=== PATIENT | female | born 1995 | race Caucasian/White ===

== ENCOUNTER 2017-08-22 14:29 | Emergency (ER) | payer OTHER ==
[2017-08-22 15:54] LABS: BASO # 0.1 10^3/uL (0.0-0.2); BASO % 0.5 % (0.0-1.0); EOS # 0.2 10^3/uL (0.0-0.50); EOS % 1.8 % (0.0-3.0); HEMATOCRIT 44.5 % (36.0-47.0); HEMOGLOBIN 15.2 g/dl (12.0-16.0); IMMATURE GRANULOCYTE % 0.3 % (0-3.0); LYMPH # 1.6 10^3/uL (1.5-6.5); LYMPH % 14.3 % (24.0-44.0); MEAN CORPUSCULAR HEMOGLOBIN 30.1 pg (27.0-33.0); MEAN CORPUSCULAR HGB CONC 34.2 g/dl (32.0-36.5); MEAN CORPUSCULAR VOLUME 88.1 fl (80.0-96.0); MONO # 0.7 10^3/uL (0.0-0.8); MONO % 6.4 % (0.0-5.0); NEUTROPHILS # 8.4 10^3/uL (1.8-7.7); NEUTROPHILS % 76.7 % (36.0-66.0); PLATELET COUNT, AUTOMATED 310 10^3/uL (150-450); RED BLOOD COUNT 5.05 10^6/uL (4.00-5.40); RED CELL DISTRIBUTION WIDTH 13.1 % (11.5-14.5)
[2017-08-22] MEDS: ONDANSETRON 4MG/2ML VIAL (J2405) IV (16:05)
[2017-08-22] MEDS: NS 500 ML IV (16:05)
[2017-08-22 16:16] LABS: CONTROL LINE HCG INT CTR LINE PRESENT; HCG, SERUM QUALITATIVE NEGATIVE (NEGATIVE)
[2017-08-22 16:26] LABS: ALBUMIN 4.2 GM/DL (3.2-5.2); ALBUMIN/GLOBULIN RATIO 1.11 (1.00-1.93); ALKALINE PHOSPHATASE 67 U/L (45-117); ALT/SGPT 14 U/L (12-78); ANION GAP 8 MEQ/L (8-16); AST/SGOT 18 U/L (7-37); BILIRUBIN,DIRECT 0.1 MG/DL (0.0-0.2); BILIRUBIN,TOTAL 0.5 MG/DL (0.2-1.0); BLOOD UREA NITROGEN 9 MG/DL (7-18); CALCIUM LEVEL 8.9 MG/DL (8.5-10.1); CARBON DIOXIDE LEVEL 26 MEQ/L (21-32); CHLORIDE LEVEL 106 MEQ/L (98-107); CREATININE FOR GFR 0.65 MG/DL (0.55-1.30); GLOMERULAR FILTRATION RATE > 60.0 (>60); GLUCOSE, FASTING 87 MG/DL (70-100); SODIUM LEVEL 140 MEQ/L (136-145)
[2017-08-22] MEDS ORDERED: ISOVUE-370 76% 100ML VIAL (Q9967) As Ordered (16:27)
== END 2017-08-22 17:13 | disposition home or self-care (01) ==
LOC: M ED 14:29
DX: M54.9 Dorsalgia, unspecified (principal); V43.62XA Car passenger injured in collision with other type car in traffic accident, initial encounter; Y92.410 Unspecified street and highway as the place of occurrence of the external cause; Y93.9 Activity, unspecified; Z04.3 Encounter for examination and observation following other accident; Z91.018 Allergy to other foods
CPT/HCPCS: J2405

== ENCOUNTER → 2018-10-15 | Outpatient (REF) | payer OTHER ==
[~2018-10-15] MED LIST: CYCL5TAB PO; IBUP-1022 PO
== END ==
LOC: M LAB REF 18:01
PROVIDERS: ATTEND Physician Assistant
DX: J02.9 Acute pharyngitis, unspecified (principal)

== ENCOUNTER → 2019-12-30 | Outpatient (CLI) | payer BC, OTHER ==
--- NOTE | 2019-12-31 03:24 | REPPI ---
REASON FOR EXAM: Groin pain. AP pelvis and bilateral hips were obtained. A single AP view of the pelvis was performed. The hip joint spaces are symmetric and relatively well maintained. There is no acute fracture or destructive osseous lesion. The hip joint spaces are symmetric and relatively well maintained. There is no acute or destructive osseous lesion. Electronically Signed by Allen Crouch DO 12/31/2019 09:13 A
== END ==
LOC: M PLAIMG 15:18
PROVIDERS: ATTEND Physician Assistant Medical
DX: R10.31 Right lower quadrant pain (principal)

== ENCOUNTER → 2023-01-13 | Outpatient (CLI) | payer BC, OTHER ==
[~2023-01-13] MED LIST changes: +ACET-683 PO; +IBUP80TA PO
== END ==
LOC: M WHC 09:22
PROVIDERS: ATTEND Obstetrics & Gynecology
DX: O26.843 Uterine size-date discrepancy, third trimester (principal); Z3A.36 36 weeks gestation of pregnancy
CPT/HCPCS: 76816; 76820; 87081; G0463

== ENCOUNTER → 2023-08-26 | Outpatient (REF) | payer OTHER ==
[~2023-08-26] MED LIST changes: +COLA100C5 PO; +MAGN200T PO; +PRENTAB9 PO; +TUMS750C5 PO
== END ==
LOC: M SFHCWAGY 09:50
PROVIDERS: ATTEND Advanced Practice Midwife
DX: Z12.4 Encounter for screening for malignant neoplasm of cervix (principal)

== ENCOUNTER 2023-09-03 08:57 | Emergency (ER) | payer OTHER ==
[~2023-09-03] VITALS: Ht 162.6 cm; Wt 59.6 kg
[2023-09-03] MEDS: ONDANSETRON 4MG 2ML VIAL IV ONE ×2 (10:07→15:17)
[2023-09-03] MEDS: NS 1,000 ML IV ONE (10:08)
[2023-09-03 10:25] LABS: RSV AMPLIFICATION NEGATIVE (NEGATIVE)
[2023-09-03 10:27] LABS: BASO % 0.3 % (0.0-1.0); EOS % 0.3 % (0.0-3.0); HEMATOCRIT 45.8 % (36.0-47.0); HEMOGLOBIN 15.9 g/dl (12.0-15.5); LYMPH # 0.3 10^3/uL (1.5-5.0); LYMPH % 2.8 % (24.0-44.0); MEAN CORPUSCULAR HEMOGLOBIN 29.8 pg (27.0-33.0); MEAN CORPUSCULAR HGB CONC 34.7 g/dl (32.0-36.5); MEAN CORPUSCULAR VOLUME 85.9 fl (80.0-96.0); MONO # 0.6 10^3/uL (0.0-0.8); MONO % 5.7 % (2.0-8.0); NEUTROPHILS # 10.2 10^3/uL (1.5-8.5); NEUTROPHILS % 90.7 % (36.0-66.0); PLATELET COUNT, AUTOMATED 241 10^3/uL (150-450); RED BLOOD COUNT 5.33 10^6/uL (4.00-5.40); WHITE BLOOD COUNT 11.2 10^3/uL (4.0-10.0)
[2023-09-03 10:34] LABS: ALBUMIN 4.6 G/DL (3.2-5.2); BILIRUBIN,DIRECT 0.4 MG/DL (<0.4); BILIRUBIN,TOTAL 1.1 MG/DL (0.3-1.2); TOTAL PROTEIN 7.7 G/DL (5.7-8.2)
[2023-09-03 10:34] LABS: BLOOD UREA NITROGEN 21 MG/DL (9-23); CARBON DIOXIDE LEVEL 22 MMOL/L (20-31); CHLORIDE LEVEL 104 MMOL/L (98-107); CREATININE FOR GFR 0.77 MG/DL (0.55-1.30); GLOMERULAR FILTRATION RATE > 60.0 (>60); GLUCOSE, FASTING 169 MG/DL (60-100); POTASSIUM SERUM 4.1 MMOL/L (3.5-5.1); SODIUM LEVEL 140 MMOL/L (136-145)
[2023-09-03] MEDS: NS 790 ML in IV 1 EA IV ONE (10:45)
[2023-09-03] MEDS ORDERED: ISOVUE-370 76% 100ML VIAL As Ordered ONE (11:15)
[2023-09-03] MEDS ORDERED: ONDA4TAB6 PO (15:04)
[2023-09-03 15:32] VITALS: BP 109/58; TEMP 99.5; O2SAT 98
== END 2023-09-03 16:00 | disposition home or self-care (01) ==
LOC: M ED 08:57
DX: A07.1 Giardiasis [lambliasis] (principal); A08.11 Acute gastroenteropathy due to Norwalk agent; Z91.018 Allergy to other foods
CPT/HCPCS: 74177; 80047; 80048; 80076; 81001; 83605; 83690; 84702; 85025; 87040; 87507; 87631; 93005; 96361; 96374; 96376; 99284; J2405; Q9967

== ENCOUNTER → 2024-06-02 | Outpatient (REF) | payer OTHER ==
[~2024-06-02] MED LIST changes: -CYCL5TAB PO; +CYCL5TAB4 PO; +ONDA-282 PO
[2024-06-02 13:11] LABS: APPEARANCE, URINE TURBID (CLEAR); BACTERIA, URINE AUTO 1+ (NEGATIVE); BILIRUBIN, URINE AUTO NEGATIVE (NEGATIVE); BLOOD, URINE BLOOD 3+ (NEGATIVE); COLOR, URINE AMBER (YELLOW); GLUCOSE, URINE (UA) AUTO NEGATIVE (NEGATIVE); KETONE, URINE AUTO 2+ mg/dL (NEGATIVE); LEUKOCYTE ESTERASE, URINE AUTO 3+ (NEGATIVE); NITRITE, URINE AUTO POSITIVE (NEGATIVE); PROTEIN, URINE AUTO 2+ mg/dL (NEGATIVE); RBC, URINE AUTO 22 /HPF (0-3); SPECIFIC GRAVITY URINE AUTO 1.012 (1.002-1.035); SQUAMOUS EPITHELIAL CELL UR AU 5 /HPF (0-6); UROBILINOGEN, URINE AUTO 0.2 mg/dL (0.0-2.0); WBC, URINE AUTO TNTC /HPF (0-3)
== END ==
LOC: M LAB REF 12:05
PROVIDERS: ATTEND Physician Assistant
DX: N39.0 Urinary tract infection, site not specified (principal)

== ENCOUNTER → 2024-08-25 | Outpatient (REF) | payer SELFPAY ==
[2024-08-25 15:11] LABS: Trichomonas vaginalis (AMP) NOT DETECTED (NEGATIVE)
[2024-08-25 15:34] LABS: GC DNA AMPLIFICATION NEGATIVE (NEGATIVE)
== END ==
LOC: M SFHCWAGY 12:54
PROVIDERS: ATTEND Nurse Practitioner Family
DX: Z34.81 Encounter for supervision of other normal pregnancy, first trimester (principal)

== ENCOUNTER → 2024-09-23 | Outpatient (CLI) | payer OTHER ==
[2024-09-23 14:38] LABS: HEMATOCRIT 38.7 % (36.0-47.0); MEAN CORPUSCULAR HEMOGLOBIN 30.2 pg (27.0-33.0); MEAN CORPUSCULAR HGB CONC 33.6 g/dl (32.0-36.5); MEAN CORPUSCULAR VOLUME 89.8 fl (80.0-96.0); PLATELET COUNT, AUTOMATED 217 10^3/uL (150-450); RED BLOOD COUNT 4.31 10^6/uL (4.00-5.40); WHITE BLOOD COUNT 10.9 10^3/uL (4.0-10.0)
[2024-09-23 15:36] LABS: HIV 1&2 SCREEN NEGATIVE (NEGATIVE)
[2024-09-23 15:44] LABS: HEPATITIS C VIRUS ABY INDEX 0.03 INDEX (<0.8)
== END ==
LOC: M PLALAB 09:40
PROVIDERS: ATTEND Nurse Practitioner Family
DX: Z34.81 Encounter for supervision of other normal pregnancy, first trimester (principal)

== ENCOUNTER → 2024-11-11 | Outpatient (CLI) | payer OTHER | LOC: M WHC 07:23 | PROVIDERS: ATTEND Nurse Practitioner Family | DX: Z34.80 Encounter for supervision of other normal pregnancy, unspecified trimester (principal); Z3A.20 20 weeks gestation of pregnancy ==

== ENCOUNTER → 2025-02-08 | Outpatient (REF) | payer OTHER | LOC: M SFHCWAGY 12:46 | PROVIDERS: ATTEND Nurse Practitioner Family | DX: Z34.83 Encounter for supervision of other normal pregnancy, third trimester (principal) ==

== ENCOUNTER 2025-03-17 04:13 | Inpatient (IN) | payer OTHER ==
[2025-03-17] VITALS (7 sets, daily range): BP systolic 103–120; BP diastolic 60–71; O2SAT 98–100
[~2025-03-17] VITALS: Ht 162.6 cm; Wt 62.6 kg
[~2025-03-17 04:13] MED LIST changes: -IBUP-1022 PO; +IBUP600T42 PO
[2025-03-17] MEDS ORDERED: CARBOPROST TROMETHAMINE 250 MCG/ML AMP IM PRN (04:30)
[2025-03-17] MEDS ORDERED: LIDOCAINE 1% MDV 20 ML VIAL INFIL PRN (04:30)
[2025-03-17] MEDS ORDERED: METHYLERGONOVINE MALEATE 0.2 MG/ML 1 ML VIAL IM PRN (04:30)
[2025-03-17] MEDS ORDERED: OXYTOCIN DRIP 30 UNITS in IV 1 EA IV PRN (04:30)
[2025-03-17] MEDS ORDERED: TRANEXAMIC ACID INJection 1,000 MG in NS 100 ML IV PRN (04:30)
[2025-03-17] MEDS ORDERED: OXYTOCIN INJ 10UNITS/ML 1ML VIAL IM PRN (04:30)
[2025-03-17 04:45] LABS: PLATELET COUNT, AUTOMATED 183 10^3/uL (150-450)
[2025-03-17 05:48] LABS: HIV 1&2 SCREEN NEGATIVE (NEGATIVE)
[2025-03-17 05:56] LABS: HEPATITIS C VIRUS ABY INDEX < 0.02 INDEX (<0.8)
[2025-03-17] MEDS ORDERED: RHOGAM 300MCG (1500IU) INJ IM SCH (06:15)
[2025-03-17] MEDS ORDERED: ACETAMINOPHEN 325 MG TAB PO PRN (06:15)
[2025-03-17] MEDS ORDERED: METHYLERGONOVINE MALEATE 0.2 MG TAB PO PRN (06:15)
[2025-03-17] MEDS ORDERED: ACETAMINOPHEN 500 MG TAB PO PRN (06:15)
[2025-03-17] MEDS ORDERED: IBUPROFEN 600 MG TAB PO PRN (06:15)
[2025-03-17] MEDS ORDERED: DOCUSATE SODIUM 100 MG CAPSULE PO PRN (06:15)
[2025-03-17] MEDS ORDERED: DIBUCAINE 1% OINTMENT 30 GM TOP PRN (06:15)
[2025-03-17 06:21] LABS: CORD GAS ABE V -4.4; CORD GAS HCO3 V 18.7 MMOL/L; CORD GAS O2 SAT V 89.0 %; CORD GAS PCO2 V 29.8 mmHg; CORD GAS PH V 7.415 UNITS; CORD GAS PO2 V 45.0 mmHg; CORD GAS SBC V 20.7 MMOL/L; CORD GAS TCO2 V 19.6 MMOL/L
[2025-03-17] MEDS: PRENATAL VITAMINS CHEWABLE TABLET PO SCH (09:00)
[2025-03-17] MEDS: IBUPROFEN 800 MG TAB PO PRN (19:40)
[2025-03-18 05:00] VITALS: BP 114/59; O2SAT 99
[2025-03-19] MEDS ORDERED: MEASLES,MUMPS,RUBELLA VACCINE INJ (MMR-II) SC.IMMUN ONE (09:00)
== END 2025-03-18 13:31 | disposition home or self-care (01) | DRG 807 ==
LOC: M LDO 04:13 → M LDI 04:29 → M OBS 08:04
PROVIDERS: ADMIT Advanced Practice Midwife; ATTEND Advanced Practice Midwife
PROC: 10E0XZZ Delivery of Products of Conception, External Approach (ICD-10-PCS; principal; 2025-03-17)
DX: O48.0 Post-term pregnancy (principal); Z37.0 Single live birth; Z3A.41 41 weeks gestation of pregnancy; Z91.018 Allergy to other foods; O69.82X0 Labor and delivery complicated by other cord entanglement, without compression, not applicable or unspecified; O77.0 Labor and delivery complicated by meconium in amniotic fluid

== ENCOUNTER 2025-06-21 07:39 | Outpatient (RCR) | payer OTHER | END 2025-06-22 | LOC: M PT 07:39 | PROVIDERS: ATTEND Advanced Practice Midwife | DX: M62.89 Other specified disorders of muscle (principal) ==